=== PATIENT | female | born 1980 | race Two or more races ===

== ENCOUNTER 2024-08-22 12:53 | Emergency (ER) | payer MEDICAID, OTHER ==
[~2024-08-22] VITALS: Ht 154.9 cm; Wt 77.2 kg
--- NOTE | 2024-08-22 13:11 | ED.PDOC ---
CONSTRUCTION REP HPI Comments HPI: Poor Historian. 43-year-old female brought in by ambulance from [facility]. Patient went to get evaluated for six day history of abnormal vaginal bleeding heavy bleeding. She also started developing some headache today forehead area and she was hypertensive at the clinic in the 180s systolic the. Also she has some di zziness that developed yesterday. Patient denies any abnormal menstrual cycle. Denies any . Denies any pain anywhere in her body however she was tender when I was pushing on her lower abdomen/pelvic area. HPI: Vitals: temp: 98.8 RR: 18 02 sat: 100 % RA heart rate: 98 BP: 164/84 PMH: HTN, anemia PSH: denies social history: denies tobacco use, denies ETOH use, denies drug use medications: lisinopril, iron, [place] allergies: nkda REVIEW OF SYSTEMS: CONSTITUTIONAL: Denies acute: fever, diaphoresis, chills, HEAD: Denies acute: photophobia Eyes: Denies acute: Double vision, vision loss, eye pain, eye discharge. EARS: Denies acute: tinnitus, hearing loss, ear discharge, ear pain, THROAT: Denies acute: sore throat, swelling, difficulty swallowing , pain with swallowing, change in voice. NECK: Denies acute: neck pain, neck swelling, stiff neck. HEART: Denies acute : chest pain, palpitations, LUNGS: Denies acute: SOB, wheezing, cough, hemoptysis ABDOMEN: Denies acute: abdominal pain, Nausea, Vomiting, diarrhea, melena , hematemesis, hematochezia SKIN: Denies acute: rash, redness, lesions, itchiness. EXTREMITIES: Denies acute: calf pain, numbness, tingling, weakness, denies pain in extremity. Denies acute: Low back pain. Neuro: Denies acute: focal neurological deficit, motor or sensory focal neurological deficit, tremors, seizure like activity, confusion, change in mental status, loss of bowel or bladder function, cauda equina like symptoms. : Denies acute: dysuria, hematuria, flank pain, increase in urinary frequency. PSYCH: Denies acute: hallucination, suicidal ideation, homicidal ideation. FEMALE: Denies acute: foul odor, unusual discharge. PHYSICAL EXAM: General: no acute distress, awake and alert. Head: normocephalic, atraumatic. Neck: supple, trachea is midline, no swelling. Throat: Normal phonation. Eyes:, no erythema, no purulent discharge, no proptosis, no icterus. Heart: regular rate, regular rhythm, no significant murmur appreciated. Lungs: no apparent respiratory distress, Able to speak in full sentences. No wheezing, no rhonchi, no crackles. No stridors Clear to auscultation bilaterally. Abdomen: Pelvic tender to palpation, non distended, soft, no guarding, no rebound, + bowel sounds. Neuro: Awake, Alert, oriented to name, self, situation, follows commands GCS=15. Speech is normal. Skin: no petechia, no purpura, no cyanosis, non-pale, not jaundice. Lower extremities: --no - Pitting edema no deformity, no focal swelling, no calf TTP. Makes eye contact. moves all four extremities. Face: no apparent facial droop. 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 MACHINE OPERATOR) Vaginal Bleeding: Other (Differential diagnosis includes but not limited to DU B, menorrhea, metromenorrhagia, neoplasm, coagulopathy,, trauma, miscarriage, placenta previa, placental abruption, ) X-Ray, Labs, Meds, VS Vital Signs Date Time Temp Pulse Resp B/P (MAP) Pulse Ox O2 Delivery O2 Flow Rate FiO2 08/22/24 19:34 98.4 107 15 137/88 (104) 99 98.4 08/22/24 17:25 Room Air* 0 21 08/22/24 15:26 98.8 110 17 144/94 (111) 99 98.8 08/22/24 13:10 98.9 98 18 164/84 (110) 100 08/22/24 13:04 93 Lab Test 08/22/24 17:46 08/22/24 15:11 08/22/24 13:07 Range/Units Hemoglobin 9.0 L 9.6 L 12.2-16.2 g/dL Hematocrit 28.2 L 30.0 L 36.0-46.0 % Troponin I High Sensitivity < 3 L < 3 L </=34 ng/L White Blood Count 7.3 4.4-10.8 10^3/uL Red Blood Count 4.19 4.0-5.20 10^6/uL Mean Corpuscular Volume 71.6 L 80.0-100.0 fL Mean Corpuscular Hemoglobin 22.9 L 28.0-32.0 pg Mean Corpuscular Hemoglobin Concent 31.9 L 32.0-36.0 g/dL Red Cell Distribution Width 16.0 H 11.8-14.3 % Platelet Count 326 140-450 10^3/uL Mean Platelet Volume 7.2 6.9-10.8 fL Neutrophils (%) (Auto) 59.5 37.0-80.0 % Lymphocytes (%) (Auto) 27.1 10.0-50.0 % Monocytes (%) (Auto) 10.4 0.0-12.0 % Eosinophils (%) (Auto) 2.1 0.0-7.0 % Basophils (%) (Auto) 0.9 0.0-2.0 % Neutrophils # (Auto) 4.4 1.6-8.6 10 ^3/uL Lymphocytes # (Auto) 2.0 0.4-5.4 10 ^3/uL Monocytes # (Auto) 0.8 0-1.3 10 ^3/uL Eosinophils # (Auto) 0.2 0-0.8 10 ^3/uL Basophils # (Auto) 0.1 0-0.2 10 ^3/uL Nucleated Red Blood Cells 0.0 % Sodium Level 141 136-145 mmol/L Potassium Level 4.3 3.5-5.1 mmol/L Chloride Level 107 98-107 mmol/L Carbon Dioxide Level 26 20-31 mmol/L Anion Gap 8 5-15 Blood Urea Nitrogen 15 9-23 mg/dL Creatinine 0.72 0.550-1.02 mg/dL Glomerular Filtration Rate Calc 108 >90 mL/min BUN/Creatinine Ratio 20.8 H 10.0-20.0 Serum Glucose 80 74-106 mg/dL Lactic Acid Level 1.4 0.4-2.0 mmol/L Calcium Level 10.0 8.7-10.4 mg/dL Magnesium Level 2.1 1.6-2.6 mg/dL Total Bilirubin 0.3 0.2-1.0 mg/dL Aspartate Amino Transferase (AST) 15 13-40 U/L Alanine Aminotransferase (ALT) 15 7-40 U/L Alkaline Phosphatase 70 46-116 U/L Total Protein 7.1 5.7-8.2 g/dL Albumin 4.5 3.2-4.8 g/dL Beta HCG, Quantitative 0.2 L 1.5-4.2 mIU/mL Current Medications Medications (Trade) Dose Ordered Sig/Becka Route Start Time Stop Time Status Last Admin Sodium Chloride 500 ml @ 500 mls/hr Q1H ONCE IV 08/22/24 13:00 08/22/24 13:59 DC 08/22/24 16:45 Acetaminophen (Tylenol Tablet) 650 mg ONCE ONCE PO 08/22/24 17:30 08/22/24 17:31 DC 08/22/24 17:49 [place] [address] Ph: [phone] DIAGNOSTIC IMAGING Diagnostic Imaging Report : [id number] Signed PATIENT: RAPHAEL GRAHAM: [id number] UNIT: [id number] : 1980 LOC: ER ROOM / BED: / AGE / SEX: 43 / F ADM STATUS: REG ER SERVICE 1358 ORDERING PHYSICIAN: HANANE PAGAN DO PROCEDURE(s): CXRP - CHEST PORTABLE REASON: DIZZY ORDER NUMBER(s): [id number], ACCESSION NUMBER(s): [id number] CHEST RADIOGRAPH Indication: DIZZY Technique: Single frontal view of the chest was obtained Comparison: None FINDINGS: Lines and Tubes: None Lungs: No focal consolidation. Pleura: No effusion.No pneumothorax. Cardiomediastinal contours: Unremarkable Bones: No acute osseous abnormality. IMPRESSION: 1. No acute cardiopulmonary disease. HS:Y ATED BY: JAMIL CHAPA MD DICTATED DATE/TIME: 08/22/241423 SIGNED BY: JAMIL CHAPA MD SIGNED DATE/TIME: 08/22/241423 CC: [place] [id number] Ph: [phone] DIAGNOSTIC IMAGING Diagnostic Imaging Report : [id number] Signed PATIENT: HOLDEN GRAHAMT: [id number] UNIT: [id number] : 1980 LOC: ER ROOM / BED: / AGE / SEX: 43 / F ADM STATUS: REG ER SERVICE 1302 ORDERING PHYSICIAN: HANANE PAGAN DO PROCEDURE(s): HWOCT - HEAD WITHOUT CONTRAST REASON: headache, dizzy ORDER NUMBER(s): [id number], ACCESSION NUMBER(s): [id number] EXAM: CT HEAD WITHOUT CONTRAST HISTORY: headache, dizzy COMPARISON: None TECHNIQUE: Axial images of the head were obtained and reformatted in coronal and sagittal planes. All CT scans at this medical facility are performed using dose modulation techniques as appropriate to a performed exam including the following: Automated exposure control was utilized; adjustment of the MA and/or KV according to patient size; and use of iterative reconstruction technique. CT Dose: CTDI volume is 55.23 mGy. Dose-length product is 977.93 mGy*cm FINDINGS: There is no evidence of acute intracranial hemorrhage, mass, mass effect midline shift. There is no hydrocephalus or extra-axial fluid collection. Ulrich-white matter differentiation is maintained.. The visualized paranasal sinuses and mastoid air cells are clear. The calvarium is intact. IMPRESSION: 1. No acute intracranial process. HS:Y ATED BY: JAMIL CHAPA MD DICTATED DATE/TIME: 08/22/241420 SIGNED BY: JAMIL CHAPA MD SIGNED DATE/TIME: 08/22/241420 CC: [address] [address] Ph: [phone] DIAGNOSTIC IMAGING Diagnostic Imaging Report : [id number] Signed PATIENT: HOLDEN GRAHAMT: [id number] UNIT: [id number] : 1980 LOC: ER ROOM / BED: / AGE / SEX: 43 / F ADM STATUS: REG ER SERVICE 1302 ORDERING PHYSICIAN: HANANE PAGAN DO PROCEDURE(s): PELUS - PELVIC REASON: vag bleed ORDER NUMBER(s): [id number], ACCESSION NUMBER(s): [id number] INDICATION: vag bleed TECHNIQUE: Multiple real-time grayscale transabdominal and endovaginal sonographic images along with color and duplex Doppler of the uterus and ovaries were obtained. COMPARISON: None FINDINGS: The retroverted uterus measures 9.2 x 6.6 x 5.1 cm. The endometrial stripe measures 0.6 cm. The right ovary measures 3.2 x 1.9 x 2.7 cm. The left ovary measures 5.3 x 2.7 x 2.2 cm. Bilateral ovarian follicles are present. Subsequent color and duplex Doppler interrogation of the ovaries demonstrated symmetric vascular flow to both ovaries, though this does not exclude the possibility of torsion due to the dual blood supply. IMPRESSION: 1. Grossly unremarkable pelvic ultrasound. HS:Y ATED BY: RAVI CAZARES DO DICTATED DATE/TIME: 08/22/241611 SIGNED BY: RAVI CAZARES DO SIGNED DATE/TIME: 08/22/241611 CC: Time of 1ST Reevaluation: 19:09 (The case was discussed with the admitting team (HPI, physical exam, labs and diagnostic tests that were available at the time of disposition, ED course, treatment plan) on the phone. They agreed to admit the patient to their service and assume care of this patient from this point forward. dr.- Mcclure. Authorization [id number] said that the patient has history of anemia and dysfunctional uterine bleed and her baseline hemoglobin is 9.5 and has history of heavy menstrual cycles. I discussed with Edgar to arrange for close follow up which she said he will do with her PCP as well.) Reevaluation 1ST: Improved Patient Education/Counseling: Diagnosis, Treatment Family Education/Counseling: No Family Present Comments Patient presented with the above HPI.----vaginal bleed dizziness and headache--workup was initiated. patient was found with the above mentioned diagnosis. Patient was given: Fluids and Tylenol Patient ED course and VS have been stabilized. Patient has been reassessed in the ED and remained in a stable condition. Pertinent incidental findings were discussed with the patient and/or family. Patient/family voices understanding and is agreeable with plan. Patient has been observed in the ED adequate length of time to insure improvement/stability. Hernández was consulted patient was discharged home in a stable condition. All the reports of any imaging studies that were ordered by myself were reviewed by myself. Departure 1 Departure Time of Disposition: 19:11 Impression: Primary Impression: DUB (dysfunctional uterine bleeding) Additional Impression: Anemia Disposition: HOME / SELF CARE / HOMELESS Condition: Stable Additional Instructions: Additional discharge instructions: You MUST follow-up with your primary care/family doctor in 1 to 2 days. If you are unable to see your primary care/family doctor, please return to our emergency room for re-assessment and re-evaluation in 1 to 2 days. Return to the emergency room here in our facility or to the nearest ER [facility] if your symptoms change or worsen. CONSULTATIONS: you MUST Follow-up for consultation as soon as possible with: Dr.-OB Kim doctor in 1-2 days. Please call for appointment You MUST call the consultants office yourself to make an appointment. You may need to arrange that through your insurance and/or your primary/family doctor. If you are unable to see the customer care consultant in 1 to 2 days, you must return to our emergency room (or any other ER of your choice) for re-assessment and re- evaluation. Adequate fluid hydration. Take daily iron supplements someone Repeat CBC in 48 hours. Below is a copy of your radiological report for follow up: [place] [address] Ph: [phone] DIAGNOSTIC IMAGING Diagnostic Imaging Report : [id number] Signed PATIENT: NAVJOT GRAHAM ACCT: [id number] UNIT: [id number] : 1980 LOC: ER ROOM / BED: / AGE / SEX: 43 / F ADM STATUS: REG ER SERVICE 1355 ORDERING PHYSICIAN: HANANE PAGAN DO PROCEDURE(s): CXRP - CHEST PORTABLE REASON: DIZZY ORDER NUMBER(s): [id number], ACCESSION NUMBER(s): [id number] CHEST RADIOGRAPH Indication: DIZZY Technique: Single frontal view of the chest was obtained Comparison: None FINDINGS: Lines and Tubes: None Lungs: No focal consolidation. Pleura: No effusion.No pneumothorax. Cardiomediastinal contours: Unremarkable Bones: No acute osseous abnormality. IMPRESSION: 1. No acute cardiopulmonary disease. HS:Y ATED BY: JAMIL CHAPA MD DICTATED DATE/TIME: 08/22/241423 SIGNED BY: JAMIL CHAPA MD SIGNED DATE/TIME: 08/22/241423 CC: [place] [address] Ph: [phone] DIAGNOSTIC IMAGING Diagnostic Imaging Report : [id number] Signed PATIENT: NAVJOT GRAHAM ACCT: [id number] UNIT: [id number] : 1980 LOC: ER ROOM / BED: / AGE / SEX: 43 / F ADM STATUS: REG ER SERVICE 1302 ORDERING PHYSICIAN: HANANE PAGAN DO PROCEDURE(s): HWOCT - HEAD WITHOUT CONTRAST REASON: headache, dizzy ORDER NUMBER(s): [id number], ACCESSION NUMBER(s): [id number] EXAM: CT HEAD WITHOUT CONTRAST HISTORY: headache, dizzy COMPARISON: None TECHNIQUE: Axial images of the head were obtained and reformatted in coronal and sagittal planes. All CT scans at this medical facility are performed using dose modulation techniques as appropriate to a performed exam including the following: Automated exposure control was utilized; adjustment of the MA and/or KV according to patient size; and use of iterative reconstruction technique. CT Dose: CTDI volume is 55.23 mGy. Dose-length product is 977.93 mGy*cm FINDINGS: There is no evidence of acute intracranial hemorrhage, mass, mass effect midline shift. There is no hydrocephalus or extra-axial fluid collection. Ulrich-white matter differentiation is maintained.. The visualized paranasal sinuses and mastoid air cells are clear. The calvarium is intact. IMPRESSION: 1. No acute intracranial process. HS:Y ATED BY: JAMIL CHAPA MD DICTATED DATE/TIME: 08/22/241420 SIGNED BY: JAMIL CHAPA MD SIGNED DATE/TIME: 08/22/24 142 CC: [place] [address] Ph: [phone] DIAGNOSTIC IMAGING Diagnostic Imaging Report : [id number] Signed PATIENT: NAVJOT GRAHAM ACCT: [id number] UNIT: [id number] : 1980 LOC: ER ROOM / BED: / AGE / SEX: 43 / F ADM STATUS: REG ER SERVICE 1302 ORDERING PHYSICIAN: HANANE PAGAN DO PROCEDURE(s): PELUS - PELVIC REASON: vag bleed ORDER NUMBER(s): [id number], ACCESSION NUMBER(s): [id number] INDICATION: vag bleed TECHNIQUE: Multiple real-time grayscale transabdominal and endovaginal sonographic images along with color and duplex Doppler of the uterus and ovaries were obtained. COMPARISON: None FINDINGS: The retroverted uterus measures 9.2 x 6.6 x 5.1 cm. The endometrial stripe measures 0.6 cm. The right ovary measures 3.2 x 1.9 x 2.7 cm. The left ovary measures 5.3 x 2.7 x 2.2 cm. Bilateral ovarian follicles are present. Subsequent color and duplex Doppler interrogation of the ovaries demonstrated symmetric vascular flow to both ovaries, though this does not exclude the possibility of torsion due to the dual blood supply. IMPRESSION: 1. Grossly unremarkable pelvic ultrasound. HS:Y ATED BY: RAVI CAZARES DO DICTATED DATE/TIME: 08/22/24 161 SIGNED BY: RAVI CAZARES DO SIGNED DATE/TIME: 08/22/24 161 CC: Discharged With: Self Critical Care Note Critical Care Time?: No I personally scribed for HANANE PAGAN DO ([email or web address]) on 08/22/24 at 13:11. Electronically submitted by David Aleman ([email or web address]). I personally scribed for HANANE PAGAN DO ([facility]ARMI) on 08/22/24 at 13:59. Electronically submitted by David Aleman ([facility] I personally scribed for HANANE PAGAN DO ([facility]) on 08/22/24 at 14:52. Electronically submitted by David Aleman ([facility] I personally scribed for HANANE PAGAN DO ([facility]) on 08/22/24 at 17:47. Electronically submitted by David Aleman ([facility] I personally scribed for HANANE PAGAN DO ([facility]) on 08/22/24 at 19:12. Electronically submitted by David Aleman ([facility] HANANE PAGAN DO Aug 22, 2024 13:11
[2024-08-22 13:41] LABS: Basophils # (auto) 0.1 10 ^3/uL (0-0.2); Eosinophils # (auto) 0.2 10 ^3/uL (0-0.8); Eosinophils % (auto) 2.1 % (0.0-7.0); Hemoglobin 9.6 g/dL (12.2-16.2); Mean Corpuscular Volume 71.6 fL (80.0-100.0); Monocytes # (auto) 0.8 10 ^3/uL (0-1.3); White Blood Cell 7.3 10^3/uL (4.4-10.8)
[2024-08-22 13:43] LABS: Basophils % (auto) 0.9 % (0.0-2.0); Lymphocytes % (auto) 27.1 % (10.0-50.0); Mean Corpuscular Hemoglobin 22.9 pg (28.0-32.0); Mean Corpuscular Hgb Conc. 31.9 g/dL (32.0-36.0); Monocytes % (auto) 10.4 % (0.0-12.0); Neutrophils # (auto) 4.4 10 ^3/uL (1.6-8.6); Neutrophils % (auto) 59.5 % (37.0-80.0); Platelet Count (auto) 326 10^3/uL (140-450); Red Blood Cells 4.19 10^6/uL (4.0-5.20)
[2024-08-22 13:55] LABS: Alanine Aminotransferase 15 U/L (7-40); Albumin 4.5 g/dL (3.2-4.8); Alkaline Phosphatase 70 U/L (46-116); Anion Gap 8 (5-15); Aspartate Aminotransferase 15 U/L (13-40); BUN/Creatinine Ratio 20.8 (10.0-20.0); Blood Urea Nitrogen 15 mg/dL (9-23); Carbon Dioxide 26 mmol/L (20-31); Chloride 107 mmol/L (98-107); Glucose 80 mg/dL (74-106); Magnesium 2.1 mg/dL (1.6-2.6); Potassium 4.3 mmol/L (3.5-5.1); Sodium 141 mmol/L (136-145)
[2024-08-22 13:56] LABS: Bilirubin, Total 0.3 mg/dL (0.2-1.0); Total Protein 7.1 g/dL (5.7-8.2)
--- NOTE | 2024-08-22 14:22 | DVH ---
EXAM: CT HEAD WITHOUT CONTRAST HISTORY: headache, dizzy COMPARISON: None TECHNIQUE: Axial images of the head were obtained and reformatted in coronal and sagittal planes. All CT scans at this medical facility are performed using dose modulation techniques as appropriate t o a performed exam including the following: Automated exposure control was utilized; adjustment of th e MA and/or KV according to patient size; and use of iterative reconstruction technique. CT Dose: CTDI volume is 55.23 mGy. Dose-length product is 977.93 mGy*cm FINDINGS: There is no evidence of acute intracranial hemorrhage, mass, mass effect midline shift. There is no h ydrocephalus or extra-axial fluid collection. Ulrich-white matter differentiation is maintained.. The visualized paranasal sinuses and mastoid air cells are clear. The calvarium is intact. IMPRESSION: 1. No acute intracranial process. HS:Y
--- NOTE | 2024-08-22 14:26 | DVH ---
CHEST RADIOGRAPH Indication: DIZZY Technique: Single frontal view of the chest was obtained Comparison: None FINDINGS: Lines and Tubes: None Lungs: No focal consolidation. Pleura: No effusion.No pneumothorax. Cardiomediastinal contours: Unremarkable Bones: No acute osseous abnormality. IMPRESSION: 1. No acute cardiopulmonary disease. HS:Y
--- NOTE | 2024-08-22 16:14 | DVH ---
INDICATION: vag bleed TECHNIQUE: Multiple real-time grayscale transabdominal and endovaginal sonographic images along with color and duplex Doppler of the uterus and ovaries were obtained. COMPARISON: None FINDINGS: The retroverted uterus measures 9.2 x 6.6 x 5.1 cm. The endometrial stripe measures 0.6 cm. The right ovary measures 3.2 x 1.9 x 2.7 cm. The left ovary measures 5.3 x 2.7 x 2.2 cm. Bilateral ovarian follicles are present. Subsequent color and duplex Doppler interrogation of the ovaries demonstrated symmetric vascular flow to both ovaries, though this does not exclude the possibility of torsion due to the dual blood suppl y. IMPRESSION: 1. Grossly unremarkable pelvic ultrasound. HS:Y
[2024-08-22] MEDS: SODIUM CHLORIDE 0.9% 500 ML IV ONE (16:45)
[2024-08-22] MEDS: ACETAMINOPHEN 325 MG TAB PO ONE (17:49)
[2024-08-22 18:02] LABS: Hematocrit 28.2 % (36.0-46.0)
[2024-08-22 19:34] VITALS: BP 137/88; PULSE 107; RESP 15; TEMP 98.4; O2SAT 99
--- NOTE | 2024-08-23 14:39 | ECG ---
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
== END 2024-08-22 19:34 | disposition home or self-care (01) ==
LOC: ER 12:53 → EDBD 12:53 → ER 19:34
DX: N93.8 Other specified abnormal uterine and vaginal bleeding (principal); R10.2 Pelvic and perineal pain; D64.9 Anemia, unspecified; I10 Essential (primary) hypertension; Z88.8 Allergy status to other drugs, medicaments and biological substances
CPT/HCPCS: 36415; 70450; 71045; 76830; 76856; 80053; 83605; 83735; 84484; 84702; 85014; 85018; 85025; 86850; 86900; 86901; 96360; 99285; J7040; 93005; 96365